=== PATIENT | male | born 1960 | race African-American/Black ===

== ENCOUNTER 2022-06-14 03:17 | Inpatient (IN) | payer OTHER, SELFPAY ==
[2022-06-14] MEDS ORDERED: Boostrix 0.5 ML (Tdap) VIAL (>/=7 yrs of age) ONE (03:43)
[2022-06-14] MEDS ORDERED: Ondansetron PF 4 MG/2 ML Vial ONE (03:43)
[2022-06-14] MEDS ORDERED: Acetaminophen 500 MG TAB ONE (03:43)
[2022-06-14 04:29] LABS: #Lymphocytes 1.4 thou/uL (1.20-3.40); #Monocytes 0.4 thou/uL (0.11-0.59); #Neutrophils 4.7 thou/uL (1.40-6.50); %Basophils 0.6 % (0.0-1.0); %Eosinophils 0.5 % (0.0-10.0); %Lymphocytes 21.7 % (21.0-51.0); %Monocytes 5.8 % (0.0-10.0); %Neutrophils 71.3 % (42.0-75.0); Hemoglobin 15.8 g/dL (14.0-18.0); Mean Corpuscular HGB CONC 36.1 g/dL (32.0-36.0); Mean Corpuscular Hemoglobin 32.2 pg (27.0-31.0); Mean Corpuscular Volume 89.1 fl (78.0-98.0); Mean Platelet Volume 7.2 fL (7.4-10.4); Platelet Count 212 10x3/uL (130-400); RBC Distribution Width 12.2 % (11.5-14.5); Red Blood Cell (RBC) Count 4.92 mill/uL (4.70-6.10); White Blood Cell (WBC) Count 6.6 10x3/uL (4.8-10.8)
[2022-06-14 04:47] LABS: ALT (SGPT) 10 U/L (8-55); AST (SGOT) 20 U/L (5-34); Albumin 3.8 g/dL (3.4-4.8); Alkaline Phosphatase 95 U/L (40-110); Anion Gap 15 mmol/L (10-20); BUN (Urea Nitrogen) 9 mg/dL (8.4-25.7); Bilirubin, Total 0.5 mg/dL (0.2-1.2); Calc. Creatinine Clearance 0 mL/min (70-130); Calcium 9.1 mg/dL (7.8-10.44); Carbon Dioxide 23 mmol/L (23-31); Chloride 106 mmol/L (98-107); Estimated GFR 100; Globulin 3.7 g/dL (2.4-3.5); Glucose 119 mg/dL (80-115); Lipase 29 U/L (8-78); Potassium 4.5 mmol/L (3.5-5.1); Protein, Total 7.5 g/dL (5.8-8.1); Sodium 139 mmol/L (136-145)
[2022-06-14 06:39] VITALS: BMI 31.7
[2022-06-14] MEDS ORDERED: Ondansetron ODT 4 MG TAB PO PRN ×2 (07:44→10:18)
[2022-06-14] MEDS ORDERED: Ondansetron PF 4 MG/2 ML Vial IVP PRN ×2 (07:44→10:18)
[2022-06-14] MEDS ORDERED: Dextrose 5% in Water 1,000 ML IV PRN (07:44)
[2022-06-14] MEDS ORDERED: Dextrose 50% Abboject 50 ML SYRINGE SLOW IVP PRN (07:44)
[2022-06-14] MEDS ORDERED: TETANUS, DIPHTHERIA TOX,ADULT (TDVAX) 0.5 ML VIAL IM ONE (07:44)
[2022-06-14] MEDS ORDERED: HumaLOG 300 UNITS/3 ML VIAL SC PRN (07:46)
[2022-06-14] MEDS ORDERED: Labetalol HCl 100 MG/20 ML VIAL SLOW IVP PRN (08:47)
[2022-06-14] MEDS ORDERED: Dextrose 50% Abboject 50 ML SYRINGE ONE (09:29)
[2022-06-14] MEDS: Famotidine 20 MG TAB PO SCH ×2 (09:36→21:33)
[2022-06-14] MEDS: Acetaminophen 325 MG TAB PO SCH ×2 (09:36→21:34)
[2022-06-14 11:59] LABS: ALT (SGPT) 9 U/L (8-55); AST (SGOT) 19 U/L (5-34); Albumin 3.3 g/dL (3.4-4.8); Alkaline Phosphatase 85 U/L (40-110); Anion Gap 12 mmol/L (10-20); BUN (Urea Nitrogen) 8 mg/dL (8.4-25.7); Bilirubin, Total 0.6 mg/dL (0.2-1.2); Calc. Creatinine Clearance 147 mL/min (70-130); Calcium 8.3 mg/dL (7.8-10.44); Carbon Dioxide 22 mmol/L (23-31); Chloride 109 mmol/L (98-107); Estimated GFR 103; Globulin 3.1 g/dL (2.4-3.5); Glucose 94 mg/dL (80-115); Potassium 3.8 mmol/L (3.5-5.1); Protein, Total 6.4 g/dL (5.8-8.1); Sodium 139 mmol/L (136-145)
[2022-06-14] MEDS: Dextrose 5 % And 0.9 % NaCl 1,000 ML IV SCH (16:57)
[2022-06-15] MEDS: Acetaminophen 325 MG TAB PO SCH ×4 (07:29→16:01)
[2022-06-15 07:38] LABS: #Basophils 0.1 thou/uL (0.0-0.2); #Eosinphils 0.1 thou/uL (0.0-0.7); #Lymphocytes 2.1 thou/uL (1.20-3.40); #Monocytes 0.5 thou/uL (0.11-0.59); #Neutrophils 1.9 thou/uL (1.40-6.50); %Basophils 1.3 % (0.0-1.0); %Eosinophils 1.9 % (0.0-10.0); %Lymphocytes 45.4 % (21.0-51.0); %Monocytes 11.6 % (0.0-10.0); %Neutrophils 39.8 % (42.0-75.0); Mean Corpuscular HGB CONC 35.5 g/dL (32.0-36.0); Mean Corpuscular Hemoglobin 31.7 pg (27.0-31.0); Mean Corpuscular Volume 89.3 fl (78.0-98.0); Mean Platelet Volume 7.2 fL (7.4-10.4); Platelet Count 183 10x3/uL (130-400); RBC Distribution Width 12.1 % (11.5-14.5); Red Blood Cell (RBC) Count 4.42 mill/uL (4.70-6.10); White Blood Cell (WBC) Count 4.7 10x3/uL (4.8-10.8)
[2022-06-15 07:57] LABS: Anion Gap 11 mmol/L (10-20); BUN (Urea Nitrogen) 8 mg/dL (8.4-25.7); Calc. Creatinine Clearance 109 mL/min (70-130); Calcium 8.3 mg/dL (7.8-10.44); Carbon Dioxide 22 mmol/L (23-31); Chloride 109 mmol/L (98-107); Estimated GFR 102; Glucose 84 mg/dL (80-115); Magnesium 1.7 mg/dL (1.6-2.6); Phosphorus 3.1 mg/dL (2.3-4.7); Potassium 3.7 mmol/L (3.5-5.1); Sodium 138 mmol/L (136-145)
[2022-06-15] MEDS: Famotidine 20 MG TAB PO SCH (09:03)
[2022-06-15] MEDS: Dextrose 5 % And 0.9 % NaCl 1,000 ML IV SCH (12:11)
[2022-06-15 19:41] VITALS: BP 147/84; TEMP 98.2
[2022-06-15] MEDS ORDERED: metFORMIN 500 MG TAB PO SCH (21:00)
[2022-06-16] MEDS ORDERED: Gabapentin 300 MG CAP PO SCH (09:00)
[2022-06-16] MEDS ORDERED: Lisinopril 20 MG TAB PO SCH (09:00)
[2022-06-16] MEDS ORDERED: Atorvastatin Calcium 40 MG TAB PO SCH (21:00)
== END 2022-06-15 21:25 | disposition home or self-care (01) | DRG 84 ==
LOC: ERS 03:17 → ERHOLD 05:55 → NEURO 19:20
PROVIDERS: ADMIT Surgery; ATTEND Surgery
PROC: 0HQ1XZZ Repair Face Skin, External Approach (ICD-10-PCS; principal; 2022-06-14)
DX: S06.5XAA Traumatic subdural hemorrhage with loss of consciousness status unknown, initial encounter (principal); E11.649 Type 2 diabetes mellitus with hypoglycemia without coma; Z23 Encounter for immunization; Z60.2 Problems related to living alone; S01.112A Laceration without foreign body of left eyelid and periocular area, initial encounter; R40.2362 Coma scale, best motor response, obeys commands, at arrival to emergency department; R40.2142 Coma scale, eyes open, spontaneous, at arrival to emergency department; R40.2252 Coma scale, best verbal response, oriented, at arrival to emergency department; W18.30XA Fall on same level, unspecified, initial encounter; Y92.009 Unspecified place in unspecified non-institutional (private) residence as the place of occurrence of the external cause; Z79.4 Long term (current) use of insulin
CPT/HCPCS: 12011; 36415; 36416; 70450; 70486; 71045; 72125; 80048; 80053; 83605; 83690; 83735; 84100; 84484; 85025; 90471; 90715; 93005; 96374; J2405; J7042; J7070; J7999